=== PATIENT | male | born 1960 | race Caucasian/White ===

== ENCOUNTER 2021-12-07 13:32 | Emergency (ER) | payer OTHER, SELFPAY ==
[2021-12-07 13:39] VITALS: BP 117/84; PULSE 69; RESP 18; TEMP 35.6; O2SAT 96; BMI 25.8
[2021-12-07 13:48] VITALS: BP 140/77; PULSE 67; RESP 18; TEMP 36.7; O2SAT 94; BMI 25.8
[2021-12-07 14:10] VITALS: RESP 18
[2021-12-07] MEDS: fentaNYL 50 mcg/mL INJ 2mL IVP (14:10)
[2021-12-07] MEDS: tetanus-diphtheria tox (adult) 0.5 mL SDV IM (14:12)
[2021-12-07] MEDS: ceFAZolin 1,000 MG in sodium chloride 0.9% (plus) 50 ML 100 MG IV (14:16)
--- NOTE | 2021-12-07 14:41 | W.ED.WOUNDLC ---
HPI - Wound/Laceration General: Chief Complaint: Wound/Laceration Stated Complaint: left arm injury Time Seen by Provider: 12/07/21 13:46 Source: patient Mode of arrival: ambulatory Limitations: no limitations History of Present Illness: 60 yo male presents emergency room with bandage in place. He was working trying to stop a piece of metal sustaining laceration to his arm. Onset (ago): minute(s) Extremity Location: Left: arm Place: work Patient tetanus UTD: No Context: accidental Associated symptoms: Reports pain; Denies chills, fever(s), foreign body sensation, inability to move or nausea Review of Systems Const: Denies: fever(s), chills, fatigue or malaise ENMT: Denies: throat pain, ear or mastoid pain, nasal discharge or nasal congestion Card: Denies: chest pain, edema, dyspnea on exertion or orthopnea Resp: Denies: dyspnea, productive cough or non-productive cough GI: Denies: abdominal pain or nausea : Denies: flank pain, difficulty urinating, dysuria, urinary frequency or urinary urgency Musc: Reports: extremity pain; Denies: neck pain or back pain Skin/Breast: Denies: rash or pruritus PFSH ED PFSH: Social History Smoking and tobacco status: never smoked Physical Exam Const: COMMON NORMALS: no acute distress GENERAL APPEARANCE: cooperative and comfortable ORIENTATION/CONSCIOUSNESS: Yes awake, Yes oriented to person, Yes oriented to place and Yes oriented to time HENMT: COMMON NORMALS: normocephalic, atraumatic and hearing grossly normal bilaterally HEAD & SCALP: normocephalic and atraumatic Resp: COMMON NORMALS: normal respiratory effort, No retractions, No use of accessory muscles and clear to auscultation bilaterally AUSCULTATION: clear to auscultation bilaterally Cardio: COMMON NORMALS: regular rate, regular rhythm and No murmurs present (Cardio) RATE: regular rate RHYTHM: regular rhythm Extremity: OTHER: Aspiration of the left upper arm just proximal to the elbow. No active bleeding. See note. Proximally 78 inches in total length. Neuro: SENSORIUM/ORIENTATION: Yes oriented to person, Yes oriented to place and Yes oriented to time Skin: COMMON NORMALS: no rashes or lesions noted GENERAL SKIN EXAM: no rashes or lesions noted Procedures Laceration Laceration 1: Site: upper extremity Side (If applicable): left Description: flap Depth: involves muscle layer Local Anesthetic: lidocaine 1% and with epi Amount of anesthesia used (mL): 10 Pre-repair: wound explored (Edge of the triceps tendon appears to be involved for approximately half an inch discussed with Ortho they do not recommend repair) and irrigated extensively Skin layer closed with: nylon Size (cm): 3-0 Number of sutures: 1 Technique: running Subcutaneous layer closed with: vicryl Size: 3-0 Number of sutures: 1 Technique: running Course Vital Signs: Vital signs: Vital Signs Temperature 98.1 F 12/07/21 13:48 Pulse Rate 67 12/07/21 13:48 Respiratory Rate 18 12/07/21 14:10 Blood Pressure 140/77 12/07/21 13:48 Pulse Oximetry 94 12/07/21 13:48 Oxygen Delivery Me thod 12/07/21 13:48 MDM - Wound/Laceration Medical Decision Making No active bleeding wound was irrigated and evaluated. There is a small flap of what appears to be triceps tendon and its only approximately half inch in length I did discuss with Dr. Howard he did not recommend attempts at repair. Patient has full function is able to flex and extend against resistance. Subcutaneous layer muscle closed with a single running suture of 3-0 Vicryl. The skin layer was then closed with a running locking suture of 3-0 nylon. Patient tolerated well good approximation cosmesis and hemostasis. Wound care instructions given follow-up with Ortho. Medical Records I reviewed the patient's medical records. Lab Data I reviewed the patient's lab results. Discharge Plan Discharge Patient Disposition: Home Clinical Impression: Laceration, Laceration of tendon of left triceps Condition: Stable Prescriptions: New amoxicillin-pot clavulanate 875-125 mg tablet 1 tab PO BID Qty: 14 0RF hydrocodone-acetaminophen 5-325 mg tablet 1 tab PO Q6H PRN (Reason: pain) Qty: 15 0RF bacitracin 500 unit/gram ointment 1 applic topical BID Qty: 14 0RF Discharge Orders: Discharge ED (Routine); Ordered 12/07/21 Ordered By: Collin Pabon Discharge Diet: Usual diet Discharge Activity: Limit activity as instructed Patient Instructions: Opioid Safety Activity Restrictions/Additional Instructions: Do not use left arm until released by orthopedics. Wear sling. Wound care instructions as discussed. Apply topical antibiotic twice daily keep wound covered with a bandage whenever not resting at home. Sutures should be removed in approximately 10 days. configuration manager will make arrangements for follow-up with orthopedics. 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
--- NOTE | 2021-12-08 21:08 | DCPLANNER ---
Addendum entered by Justine Harris 12/17/21 11:57: Patient had a follow up appointment scheduled for 12.15.[address] Howard at ortho - patient did attend appointment. Original Note: family independence case manager had message to schedule a follow up appointment for patient with ortho. family independence case manager sent patients information to the front office staff at ortho. Patients information will be printed and reviewed. Clinic will call patient with appointment information.
== END 2021-12-07 15:30 | disposition home or self-care (01) ==
PROVIDERS: Emergency Provider Family Medicine
DX: S41.112A Laceration without foreign body of left upper arm, initial encounter (principal); S46.322A Laceration of muscle, fascia and tendon of triceps, left arm, initial encounter; W26.8XXA Contact with other sharp object(s), not elsewhere classified, initial encounter; Z23 Encounter for immunization
CPT/HCPCS: 12031; 29240; 90471; 90714; 96365; 96375; 99284; 99291; J0690; J3010

== ENCOUNTER → 2021-12-15 13:50 | Outpatient (BNVA) | payer OTHER, SELFPAY | PROVIDERS: Visit Provider Orthopaedic Surgery | DX: S49.92XA Unspecified injury of left shoulder and upper arm, initial encounter (principal); M19.012 Primary osteoarthritis, left shoulder; X58.XXXA Exposure to other specified factors, initial encounter | CPT/HCPCS: 73030 ==

== ENCOUNTER 2022-08-10 06:46 | Day surgery (SDC) | payer BC, SELFPAY ==
[2022-08-09 09:36] VITALS: BMI 26.9
[2022-08-10 07:03] VITALS: BP 157/95; PULSE 69; RESP 16; TEMP 36.1; O2SAT 97
[2022-08-10] MEDS: sodium chloride 0.9% 1,000 ML 30 ML IV (07:06)
[2022-08-10] MEDS: ondansetron 2 mg/ML SDV 2 mL 4 MG IVP (07:10)
--- NOTE | 2022-08-10 08:03 | ANES.PREANE2 ---
Pre-Anesthetic Assessment Height/Weight: Height 1.73 m Weight 80.286 kg Temp Pulse Resp BP Pulse Ox O2 Del Method 97.0 F L 69 16 157/95 97 08/10/22 07:03 08/10/22 07:03 08/10/22 07:03 08/10/22 07:03 08/10/22 07:03 08/10/22 07:03 Preop Diagnosis: screening Operation Date: 08/10/22 08:30 Proposed Procedures p 24476 colon Z12.11(Not Applicable) - Gaston Hunt DO Familial anesthetic complications: none Was Beta Lesley taken within 24 hours: N/A Was Clonidine taken within 24 hours: N/A Last intake: Intake Last Liquid Date 08/09/22 Last Liquid Time 22:00 Last Solid Date 08/08/22 Last Solid Time 18:00 Last Intake: 22:00 Social Alcohol (2-3 beers at night) and No tobacco Exam alert, oriented x 3, clear to auscultation bilaterally and regular rate & rhythm Airway Submandibular: within normal limits Cervical ROM: within normal limits Mallampati: Class II Dentition: full Pulmonary None reported CV/HEM Hypertension None reported Hepatic None reported GI Gastroesophageal Reflux Disease (controlled with OTC) Metabolic None reported Musc/skel Lower Back Pain and Osteoarthritis/DJD Neuropsych None reported Anesthetic Plan ASA status: 2 Anesthesia: MAC Medications/Allergies Home Medications Medication Instructions Recorded Confirmed Last Taken Type amlodipine 10 mg tablet 10 mg PO DAILY 07/08/22 08/10/22 08/09/22 History lisinopril 10 mg tablet 10 mg PO DAILY 07/08/22 08/10/22 08/09/22 History sertraline 50 mg tablet 50 mg PO DAILY 07/08/22 08/10/22 08/09/22 History allopurinol 300 mg tablet 300 mg PO DAILY 08/09/22 08/10/22 08/09/22 History Allergies Allergy/AdvReac Type Severity Reaction Status Date / Time No Known Allergies Allergy Verified 08/10/22 07:02 Current Medications Generic Name Dose Route Start Last Admin Trade Name Freq PRN Reason Stop Dose Admin Sodium Chloride 1,000 mls @ 30 mls/hr 08/10/22 07:00 08/10/22 07:06 Sodium Chloride 0.9% IV 08/11/22 06:59 30 mls/hr .Q24H ESEQUIEL Administration PFSH Anesthesia Family History Grandmother Heart attack Mother Afebrile Social History Smoking and tobacco status: former smoker Alcohol intake: current Alcohol intake frequency: few times a week Alcohol type: beer Data Anesthesia Cardiac Studies: No Data to Display
--- NOTE | 2022-08-10 09:05 | PM.HP ---
Providers/Chief Complaint Primary Care Provider: Esperanza Kim MD Chief Complaint: Z12.11 History of Present Illness Sergo Wise is a 61 year old male here for colonoscopy Medications/Allergies Home Medications Medication Instructions Recorded Confirmed Last Taken Type amlodipine 10 mg tablet 10 mg PO DAILY 07/08/22 08/10/22 08/09/22 History lisinopril 10 mg tablet 10 mg PO DAILY 07/08/22 08/10/22 08/09/22 History sertraline 50 mg tablet 50 mg PO DAILY 07/08/22 08/10/22 08/09/22 History allopurinol 300 mg tablet 300 mg PO DAILY 08/09/22 08/10/22 08/09/22 History Allergies Allergy/AdvReac Type Severity Reaction Status Date / Time No Known Allergies Allergy Verified 08/10/22 07:02 PFSH Acute PFSH: Family History Grandmother Heart attack Mother Afebrile Social History Smoking and tobacco status: former smoker Alcohol intake: current Alcohol intake frequency: few times a week Alcohol type: beer Vitals/I&O/Wt Last Vital Signs Temp 97.0 F L 08/10/22 07:03 Pulse 69 08/10/22 07:03 Resp 16 08/10/22 07:03 BP 157/95 08/10/22 07:03 Pulse Ox 97 08/10/22 07:03 O2 Del Method 08/10/22 07:03 Weight last 48 hrs Weight 177 lb A&P Assessment and plan (1) Colon cancer screening: Plan Colonoscopy with random biopsies Attestations Medical Necessity Statement*: Home Coding Level of Care Code Acute Code for Chg Fwd Diagnoses Colon cancer screening Z12.11
[2022-08-10 09:24] VITALS: BP 91/59; PULSE 56; RESP 16; TEMP 36.3; O2SAT 95
[2022-08-10 09:29] VITALS: BP 95/64; PULSE 57; RESP 16; O2SAT 96
[2022-08-10 09:39] VITALS: BP 107/80; PULSE 66; RESP 18; O2SAT 96
--- NOTE | 2022-08-10 13:14 | ANE.PACU2 ---
Inpatient post-anesthesia follow up: Airway intact: Yes Vital signs: Temperature 97.4 F Pulse Rate 66 Respiratory Rate 18 Blood Pressure 107/80 Pulse Oximetry 96 Oxygen Delivery Me thod Room Air Oxygen Flow Rate 4 Fraction of Inspir ed Oxygen 95 Hydration adequate: Yes Nausea and vomiting: No Pain level: 1 Mental status: Baseline
== END 2022-08-10 10:08 | disposition home or self-care (01) ==
PROVIDERS: PCP Family Medicine; Visit Provider Surgery
PROC: 0DJD8ZZ Inspection of Lower Intestinal Tract, Via Natural or Artificial Opening Endoscopic (ICD-10-PCS; CPT 45378; principal; 2022-08-10 08:30)
DX: K52.9 Noninfective gastroenteritis and colitis, unspecified (principal); K57.30 Diverticulosis of large intestine without perforation or abscess without bleeding; Z87.891 Personal history of nicotine dependence; I10 Essential (primary) hypertension; K21.9 Gastro-esophageal reflux disease without esophagitis
CPT/HCPCS: 45380; 82274; 83630; 87493; 87506; 88305; 96374; J2405; J2704; J7030